=== PATIENT | female | born 1995 | race Two or more races ===

== ENCOUNTER 2023-04-26 12:31 | Outpatient (REF) | payer MEDICAID, SELFPAY ==
--- NOTE | ~2023-04-26 | US_ITS ---
EXAMINATION: US DIAGNOSTIC ULTRASOUND BREAST, LEFT CLINICAL INFORMATION: 27-year-old female complaining of palpable abnormality at the 3:00 axis x2 weeks.. COMPARISON: None available. TECHNIQUE: Ultrasound of the breast is performed with real-time bolanos scale imaging and color Doppler. Specific attention was given to the focus of palpable abnormality as detailed by the patient. FINDINGS: In the left breast at the 2:00 axis, 4 cm from the nipple, there is a simple anechoic cyst measuring 1.4 x 1.0 x 1.4 cm. This correlates well with the focus of palpable concern. There is no solid mass, architectural abnormality, duct ectasia, or edema in the soft tissue planes. Results were provided to the patient at time of visit by the technologist. US/US breast LT limited mamm only IMPRESSION: Benign cyst left breast 2:00 axis, 4 cm from the nipple, measuring 1.4 cm. This correlates well with the focus of palpable concern and is benign. Recommend clinical management. Aspiration could be performed for symptomatic relief if felt clinically necessary. ASSESSMENT: BI-RADS 2: Benign RECOMMENDATION: 1. Patient should be managed based on the clinical impression. Aspiration offered as detailed above, for symptomatic relief. 2. Otherwise, routine annual screening mammography to begin at age 40.. This patient's information was entered into a reminder system with a target due date for their next mammogram.
== END 2023-04-26 12:32 | disposition home or self-care (01) ==
LOC: HO.MAMMO 12:31
PROVIDERS: PCP Registered Nurse; Visit Provider Internal Medicine
DX: N63.25 Unspecified lump in the left breast, overlapping quadrants (principal)
CPT/HCPCS: 76642

== ENCOUNTER → 2023-04-26 13:00 | Outpatient (BNV) | payer MEDICAID, SELFPAY | PROVIDERS: PCP Registered Nurse; Visit Provider Radiology Diagnostic Radiology | DX: N63.20 Unspecified lump in the left breast, unspecified quadrant (principal) | CPT/HCPCS: 76642 ==

== ENCOUNTER 2025-06-19 15:03 | Outpatient (REF) | payer MEDICAID, SELFPAY ==
--- OUTSIDE RECORDS SUMMARY | 2025-06-19 14:15 | XMS_ITS | Encounter Summary ---
Author Organization [employer] Address [address] [place] [address] [address] [place] [address] Care Team Providers Care Mini Bar Attendant Name Role Phone [facility] Primary Care Provider [phone] Reason for Visit * Reason Comments Annual Exam Encounter Details Date Type Department Care Team ([facility] st Contact Info) Description 06/19/2025 2:15 PM EST Office Visit [facility] [address] [place] [address] [facility] [address] [place] [address] Bruising (Primary Dx); Healthcare maintenance; Seafood allergy Social History Tobacco Use Types Packs/Day Years Used Date Smoking Tobacco: Never Passive Smoke Exposure: Never Smokeless Tobacco: Never Tobacco Cessation:Counseling Given: Not Answered Alcohol Use Standard Drinks/Week Comments Not Currently 0 (1 standard drink = 0.6 oz pur e alcohol) Depression Answer Date Recorded Patient Health Questionnaire-9 Score 0 06/19/2025 Patient Health Questionnaire-9 Score 0 06/19/2025 Last PHQ-9: Questionnaire Data Not on file 1 08/19/2024 Housing Stability Answer Date Recorded What is your housing situation today? I have reinaldo chen 12/19/[address] you li ve. Do you have problems with any of the following? None of the above 12/19/2023 Food Insecurity Answer Date Recorded Within the past 12 months, y ou worried that your food would run out before you got money to buy more: Never True 12/19/2023 Within the past 12 months,th e food you bought just didn't last and you didn't have enough money to get more: Never True Transportation Answer Date Recorded In the past 12 months, has l ack of transportation kept you from medical appts, meetings, work or from getting things needed for daily living? No 05/29/2023 Utilities Answer Date Recorded In the past 12 months, has t he electric, gas, oil or water company threatened to shut off services in your home? No 05/29/2023 Depression Answer Date Recorded Patient Health Questionnaire-2 Score 0 06/19/2025 Comments No Sex and Gender Information Value Date Recorded Sex Assigned at Female 06/07/2022 10:40 AM EDT Legal Sex Female 10:40 AM EDT Gender Identity Female 06/07/2022 10:40 AM EDT Sexual Orientation Straight 06/07/2022 10 :40 AM EDT documented as of this encounter Last Filed Vital Signs Vital Sign Reading Time Taken Comments Blood Pressure 100/68 06/19/2025 2:06 PM EST Pulse 60 06/19/2025 2:06 PM EST Temperature 36.7 C (98 F) 06/19/2025 2:06 PM EST Respiratory Rate 16 06/19/2025 2:06 PM EST Oxygen Saturation - - Inhaled Oxygen Concentration - - Weight 52.5 kg (115 lb 12.8 oz) 06/19/2025 2:06 PM EST Height 149.9 cm (4' 11 ) 06/19/2025 2:06 PM EST Body Mass Index 23.39 06/19/2025 2:06 PM EST documented in this encounter Functional Status * Over the past 2 weeks, how often have you been bothered by any of the following problems? Question Answer Date of Assessment Author Patient Health Questionnaire-2 Score 0 06/19/2025 2:16 PM EST Sabi Meyers MA * Little interest or pleasure in doing things Answer Date of Assessment Author Not at all 06/19/2025 2:16 PM EST Sabi Marion MA * Feeling down, depressed, or hopeless Answer Date of Assessment Author Not at all 06/19/2025 2:16 PM EST Sabi Marion MA * Trouble falling or staying asleep, or sleeping too much Answer Date of Assessment Author Not at all 06/19/2025 2:16 PM Sabi Amos MA * Feeling tired or having little energy Answer Date of Assessment Author Not at all 06/19/2025 2:16 PM Sabi Amos MA * Poor appetite or overeating Answer Date of Assessment Author Not at all 06/19/2025 2:16 PM Sabi Amos MA * Feeling bad about yourself - or that you are a failure or have let yourself or your family down Answer Date of Assessment Author Not at all 06/19/2025 2:16 PM Sabi Amos MA * Trouble concentrating on things, such as reading the newspaper or watching television Answer Date of Assessment Author Not at all 06/19/2025 2:16 PM Sabi Amos MA * Moving or speaking so slowly that other people could have noticed? Or the opposite - being so fidgety or restless that you have been moving around a lot more than usual. Answer Date of Assessment Author Not at all 06/19/2025 2:16 PM Sabi Amos MA * Thoughts that you would be better off or hurting yourself in some way Answer Date of Assessment Author Not at all 06/19/2025 2:16 PM Sabi Amos MA * Patient Health Questionnaire-9 Score Answer Date of Assessment Author 0 06/19/2025 2:16 PM Sabi Amos MA * Over the last 2 weeks, how often have you been bothered by any of the following problems? Question Answer Date of Assessment Author Feeling nervous, anxious, or on edge 0 06/19/2025 2:16 PM Sabi Singleton MA Not being able to stop or control worrying 0 06/19/2025 2:16 PM Sabi Singleton MA Worrying too much about different things 0 06/19/2025 2:16 PM Sabi Singleton MA Trouble relaxing 0 06/19/2025 2:16 PM EST Sabi Neff MA Being so restless that it is hard to sit still 0 06/19/2025 2:16 PM EST Sabi Meyers MA Becoming easily annoyed or irritable 0 06/19/2025 2:16 PM EST Sabi Meyers MA Feeling afraid as if something awful might happen 0 06/19/2025 2:16 PM EST Sabi Whalen MA ROSALIND-7 Total Score 0 06/19/2025 2:16 PM EST Sabi Meyers MA documented as of this encounter Plan of Treatment Scheduled Orders Name Type Priority Associated Diagnoses Orde r Schedule TSH W/Reflex to FT4 Lab Routine Bruising Expected: 06/19/2025 (Approximate), Expires: 06/19/2026 documented as of this encounter Procedures Procedure Name Priority Date/Time Associated Diagnosis Comments CBC WITH AUTO DIFFERENTIAL Routine 06/19/2025 3:17 PM EST Bruising documented in this encounter Results * CBC auto differential (06/19/2025 3:17 PM EST) White Blood Count 8.7 4.8 - 10.8 X10*3/uL [facility] Red Blood Count 4.59 4.20 - 5.50 X10*6/uL [facility] Hemoglobin 12.7 12.0 - 16.0 g/dl [facility] Hematocrit 38.8 37.0 - 47.0 % [facility] Mean Corpuscular Volume 84.5 80.0 - 98.0 fL [facility] Mean Corpuscular Hemoglobin 27.7 27.0 - 33.0 pg [facility] Mean Corpuscular HGB Conc 32.7 31.0 - 35.0 g/dl [facility] Red Cell Distribution Width 12.3 11.0 - 16.0 % [facility] Platelet Count 250 160 - 400 X10*3/uL [facility] Mean Platelet Volume 10.8 9.4 - 12.3 fL [facility] Neutrophils Percent Auto 52.8 45 - 73 % [facility] Imm Gran Pct Auto 0.2 0.0 - 0.4 % [facility] Lymphocytes Percent Auto 38.3 20 - 40 % [facility] Monocytes Percent Auto 5.6 2 - 11 % [facility] Eosinophils Percent Auto 2.5 0 - 4 % [facility] Basophils Percent Auto 0.6 0 - 2 % [facility] NRBC Pct Auto 0.0 0.0 - 0.2 /100WBC [facility] Neutrophils Absolute Auto 4.6 2.0 - 8.3 x10*3/uL [facility] Imm Gran Abs Auto 0.02 0.00 - 0.03 X10*3/uL [facility] Lymphocytes Absolute Auto 3.3 1.2 - 4.9 X10*3/uL [facility] Monocytes Absolute Auto 0.5 0.1 - 1.2 X10*3/uL [facility] Eosinophils Absolute Auto 0.2 0.0 - 0.4 X10*3/uL [facility] Basophils Absolute Auto 0.1 0.0 - 0.2 X10*3/uL [facility] NRBC Abs Auto 0.000 0.0 - 0.012 X10*3/uL [facility] Blood Venous blood specimen / Unknown 06/19/2025 3:17 PM EST 06/19/2025 3:59 PM EST [facility] LAB BLOOD ORDERABLES Final Re sult [facility] [address] [place] [address] [phone] documented in this encounter Visit Diagnoses Diagnosis Bruising- Primary Contusion of unspecified site Healthcare maintenance Seafood allergy Allergy to seafood documented in this encounter Additional Health Concerns Assessment Noted Time PHQ-9 Depression Total Score: 0 06/19/20 25 2:16 PM EST documented as of this encounter Care Teams Mini Bar Attendant Relationship Specialty Start Date End Date [facility] [address] [place] [id number] PCP - General Family Medicine 04/06/22 documented as of this encounter
[2025-06-19 16:07] LABS: MANUAL DIFF FLAG NO
[2025-06-19 16:17] LABS: Hematocrit 38.8 % (37.0-47.0); Hemoglobin 12.7 g/dl (12.0-16.0); Imm Gran Abs Auto 0.02 X10*3/uL (0.00-0.03); Imm Gran Pct Auto 0.2 % (0.0-0.4); Lymphocytes Absolute Auto 3.3 X10*3/uL (1.2-4.9); Mean Corpuscular HGB Conc 32.7 g/dl (31.0-35.0); Mean Corpuscular Hemoglobin 27.7 pg (27.0-33.0); Mean Corpuscular Volume 84.5 fL (80.0-98.0); NRBC Abs Auto 0.000 X10*3/uL (0.0-0.012); NRBC Pct Auto 0.0 /100WBC (0.0-0.2); Platelet Count 250 X10*3/uL (160-400); Red Blood Count 4.59 X10*6/uL (4.20-5.50); White Blood Count 8.7 X10*3/uL (4.8-10.8)
--- OUTSIDE RECORDS SUMMARY | 2025-06-19 18:23 | XMS_ITS | Clinical Summary ---
Author Organization [facility] Address [address] [place] [address] Phone Care Team Providers Care Repair Weaver Name Role Phone Unavailable Primary Care Provider Unavailabl e Allergies Active Allergy Reactions Criticality Noted Date Comments Caffeine Rash Low 02/20/2024 Roselle Extract Itching 02/20/2024 Roselle Syrup Rash 02/20/2024 Fructose Rash Low 02/20/2024 Other 01/23/2024 Caffeine corn Syrup Fructose sucrose Other Reaction(s): Rash/Dermatitis Shellfish Containing Products Swelling 01/23/2024 Seafood Sucrose Rash Low 02/20/2024 Medications etonogestrel-elut ing contraceptive device (Nexplanon) 68 mg implant subdermal implant Inject 68 mg into the skin Once. 4 Active hydrocortisone (ANUSOL-HC) 2.5 % rectal cream Apply 1 Applicator topically 2 times daily. 4 Active vit no.124/iron/folic ( VITAMIN ORAL) Vit-Fe Fumarate-FA ( Vitamin) 27-0.8 MG Tab Take 1 Tablet by mouth daily. 4 Active Active Problems Problem Noted Date Diagnosed Date Elevated glucose tolerance test 01/05/2024 Overview (07/04/2024): 1 hr was 140 3 hr one abnormal value Size of fetus inconsistent with dates in second trimester 01/05/2024 Overview (07/04/2024): Fundal height is 24cm at 26w5d, growth u/s ordered survey on 01/20/24- WNL Surgical History Surgery Date Site/Laterality Comments OTHER SURGICAL HISTORY PROCEDURE: DENIES PREVIOUS SURGERY Medical History Medical History Date Comments Patient denies medical problems DX:Patient denies medical problems Left breast lump DX:Left breast lump; COMMENT: mammo/sono were negative Family History Medical History Relation Name Comments No Known Problems Father COPD Maternal Grandfather Diabetes Maternal Grandmother No Known Problems Mother Alcohol abuse Paternal Grandfather No Known Problems Paternal Grandmother Relation Name Status Comments Brother Alive Father Alive Maternal Grandfather Maternal Grandmother Alive Mother Alive Paternal Grandfather Paternal Grandmother Sister 1 Alive Sister 2 Alive Social History Tobacco Use Types Packs/Day Years Used Date Smoking Tobacco: Never Smokeless Tobacco: Never Alcohol Use Standard Drinks/Week Comments Never 0 (1 standard drink = 0.6 oz pur e alcohol) Comments No Sex and Gender Information Value Date Recorded Sex Assigned at Not on file Legal Sex Female 11:07 AM EDT Gender Identity Not on file Sexual Orientation Not on file Obstetrics History * This document contains information received from the source organization and may not represent a complete record from that organization. Para Term AB IAB SAB Ectopic Multiple Livin g Live Births 3 1 1 1 1 Date Outcome GA Total Labor Labor/2nd/3rd Weight Sex Type Anes PTL Belén A1 A5 Name Clin 02/24 23 04/27 23 02/19 Term 38w 1d F Vag-S pont Epidura l Livin g Kayla Feinla nd Complications:None Last Filed Vital Signs Vital Sign Reading Time Taken Comments Blood Pressure 105/64 09/03/2024 3:02 PM EST Pulse 61 09/03/2024 3:02 PM EST Temperature - - Respiratory Rate - - Oxygen Saturation - - Inhaled Oxygen Concentration - - Weight 53.5 kg (118 lb) 09/03/2024 3:02 PM EST Height 149.9 cm (4' 11 ) 09/03/2024 3:02 PM EST Body Mass Index 23.83 09/03/2024 3:02 PM EST Plan of Treatment Health Maintenance Due Date Last Done Comments Hepatitis B Vaccines (2 of 3 - 19+ 3-dose series) 12/09/2017 11/11/2017 Social Influencers of Health Screening 03/02/2024 Depression Screening 08/08/2024 COVID-19 Vaccine (1 - 2024-2 6 season) 2025 Influenza Vaccine (#1) 2025 Cervical Cancer Screening: P ap Smear 11/22/2025 11/22/2022, 11/22/2022, 01/25/2018 Cholesterol Screening (Lipid Panel) 12/17/2027 12/16/2022, 01/25/2018 DTaP,Tdap,and Td Vaccines (3 - Td or Tdap) 12/04/2033 12/05/2023, 12/16/2022 RSV Immunization Adult Patients (1 - 1-dose 75+ series) 10/28/2071 HPV Vaccines Completed 01/24/2017, 08/05/2016, 06/03/2016 Hepatitis A Vaccines Aged Out 11/11/2017 No long er eligible based on patient's age to complete this topic MMR Vaccines Aged Out 11/11/2017 No longer eligi ble based on patient's age to complete this topic Varicella Vaccines Aged Out 11/11/2017 No longer eligible based on patient's age to complete this topic HIV Screening Completed 12/16/2022 Hepatitis C Screening Completed 12/16/2022 HIB Vaccines Aged Out No longer eligi ble based on patient's age to complete this topic IPV Vaccines Aged Out No longer eligi ble based on patient's age to complete this topic Meningococcal ACWY Vaccine Aged Out N o longer eligible based on patient's age to complete this topic Meningococcal B Vaccine Aged Out No l onger eligible based on patient's age to complete this topic Pneumococcal Vaccine: Pediatrics (0 to 5 Years) and At-Risk Patients (6 to 49 Years) Aged Out No longer eligible b ased on patient's age to complete this topic RSV Immunization Patients Under 20 months Aged Out No longer eligible b ased on patient's age to complete this topic Procedures Procedure Name Priority Date/Time Associated Diagnosis Comments PAP SMEAR Routine 11/22/2022 from Last 3 Months or Most Recently Relevant to Health Maintenance Results * Pap Smear (11/22/2022) Pap smear no interpretation , abstracted Historical Provider MD HEALTH MAINTENANCE Final Result from Last 3 Months or Most Recently Relevant to Health Maintenance Insurance MEDICAID - [place]
--- OUTSIDE RECORDS SUMMARY | 2025-06-19 18:23 | XMS_ITS | Encounter Summary ---
Author Organization [employer] Address [address] [facility] 7 [place] [address] Care Team Providers Care Database Marketing Analyst Name Role Phone Mario [facility] Primary Care Provider [phone] Encounter Details Date Type Department Care Team ([facility] Contact Info) Description 05/16/2024 Orders Only [facility] [address] [place] [address] Carmelita Macario RN [address] [place] [address] Social History Tobacco Use Types Packs/Day Years Used Date Smoking Tobacco: Never Passive Smoke Exposure: Never Smokeless Tobacco: Never Alcohol Use Standard Drinks/Week Comments Not Currently 0 (1 standard drink = 0.6 oz pur e alcohol) Depression Answer Date Recorded Patient Health Questionnaire-9 Score 0 05/07/2024 Patient Health Questionnaire-9 Score 0 05/07/2024 Last PHQ-9: Questionnaire Data Not on file 0 05/07/2024 Housing Stability Answer Date Recorded What is [...] Date Recorded Patient Health Questionnaire-2 Score 0 05/07/2024 Comments Yes Sex and Gender Information Value Date Recorded Sex Assigned at Female 06/07/2022 10:40 AM EDT Legal Sex Female 10:40 AM EDT Gender Identity Female 06/07/2022 10:40 AM EDT Sexual Orientation Straight 06/07/2022 10 :40 AM EDT documented as of this encounter Plan of Treatment Not on file documented as of this encounter Procedures Procedure Name Priority Date/Time Associated Diagnosis Comments PAP SMEAR Routine 11/22/2022 12:00 AM EDT documented in this encounter Results * Pap Smear (11/22/2022 12:00 AM EDT) Swab us Historical Provider MD LAB CYTOLOGY ORDERABLES F inal Result [facility] [address] [place] [address] documented in this encounter Visit Diagnoses Not on filedocumented in this encounter Additional Health Concerns Assessment Noted Time PHQ-9 Depression Total Score: 0 05/07/20 24 10:21 AM EDT documented as of this encounter Care Teams Database Marketing Analyst Relationship Specialty Start Date End Date Henna Martin FNP [address] [place] [id number] PCP - General Family Medicine 04/06/22 documented as of this encounter
--- OUTSIDE RECORDS SUMMARY | 2025-06-19 18:23 | XMS_ITS | Encounter Summary ---
Author Organization [employer] Address [address] [place] [address] 7 [place] [address] Care Team Providers Care Manager Beverage Name Role Phone [facility] Primary Care Provider [phone] Reason for Visit * Reason Onset Date Comments chart prep 06/18/2025 Encounter Details Date Type Department Care Team ([facility] st Contact Info) Description 06/18/2025 Telephone [facility] [address] [place] [address] [facility] [address] [place] [address] chart prep Social History Tobacco Use Types Packs/Day Years [...] Patient Health Questionnaire-2 Score 0 06/19/2025 Comments Unknown Sex and Gender Information Value Date Recorded Sex Assigned at Female 06/07/2022 10:40 AM EDT Legal Sex Female 10:40 AM EDT Gender Identity Female 06/07/2022 10:40 AM EDT Sexual Orientation Straight 06/07/2022 10 :40 AM EDT documented as of this encounter Miscellaneous Notes * Telephone Encounter - Sabi Meyers MA - 06/18/2025 2:27 PM EST Chart Prep Labs: not applicable Images: not applicable Referrals: complete Vaccines due: Covid, Flu, and Hep B Screenings: not applicable Overdue care gaps: SDOH, PHQ-9, ROSALIND-7, and Disability screen documented in this encounter Plan of Treatment Not on file documented as of this encounter Visit Diagnoses Not on filedocumented in this encounter Additional Health Concerns Assessment Noted Time PHQ-9 Depression Total Score: 0 05/07/20 24 10:21 AM EDT documented as of this encounter Care Teams Manager Beverage Relationship Specialty Start Date End Date Henna Martin FNP [address] [place] [id number] PCP - General Family Medicine 04/06/22 documented as of this encounter
--- OUTSIDE RECORDS SUMMARY | 2025-06-19 18:23 | XMS_ITS | Clinical Summary ---
Author Organization [facility] Address [address] [place] [address] 7 [place] [address] Care Team Providers Care Data Management Name Role Phone Henna Martin [facility] Primary Care Provider [phone] Allergies Active Allergy Reactions Criticality Noted Date Comments Shellfish Allergy 12/16/2022 Shellfish Protein-Containing Drug Products Angioedema 11/20/2021 Other Reaction(s): Hives, Trouble Breathing Medications * This document contains information received from the source organization and may not represent a complete record from that organization. multivitamin () 27-0.8 MG tabletIndicatio ns:Healthcare maintenance Take 1 tablet by mouth Once per day. 90 tablet 3 06/19/20 25 Active EPINEPHrine (EpiPen 2-Troy) 0.3 MG/0.3ML injection syringeIndicati ons:Seafood allergy Inject 0.3 mL (0.3 mg) as directed 1 (one) time. 1 each 3 06/19/20 25 Active EPINEPHrine (EpiPen 2-Troy) 0.3 MG/0.3ML injection syringeIndicati ons:Seafood allergy Inject 0.3 mL (0.3 mg) as directed 1 (one) time for 1 dose. 1 each 3 12/17/19 23 025 Discontinued(Re order (will not trigger notification to Pharmacy)) Active Problems Problem Noted Date Diagnosed Date Major depressive disorder, s starr episode, mild with peripartum onset 03/27/2024 Healthcare maintenance 12/19/2023 Overview (12/19/2023): Pap negative 12/[address] [facility] Vitamin D deficiency 03/02/2023 Resolved Problems Problem Noted Date Diagnosed Date Resolved Date depression 03/27/[address] 03/02/2023 Encounters Date Type Department Care Team Description 06/19/2025 2:15 PM EST Office Visit [facility] [address] [place] [address] Henna Martin FNP Bruising (Primary Dx); Healthcare maintenance; Seafood allergy 06/19/2025 Travel 06/18/2025 Telephone [facility] [address] [place] [address] Henna Martin FNP chart prep 06/12/2025 Patient Outreach [facility] [address] [place] [address] Henna Martin FNP Pre-visit Planning (LVM) 04/09/2025 Telephone [facility] [address] [place] [address] Henna Martin FNP oct recall 03/29/2025 1:00 PM EDT Office Visit [facility] OPTOMETRY [address] [place] [address] Tarka, Reina, OD Normal eye exam (Primary Dx); Regular astigmatism, right eye 03/29/2025 Travel from Last 3 Months Immunizations Immunization Administration Dates Next Due HPV 9-Valent 01/24/2017,08/05/2016,06/03/2016 Hep A, Adult 11/11/2017 Hep B, adult 11/11/2017 MMR 11/11/2017 Tdap 12/05/2023,12/16/2022 Varicella 11/11/2017 Social History Tobacco Use Types Packs/Day Years [...] Orientation Straight 06/07/2022 10 :40 AM EDT Last Filed Vital Signs Vital Sign Reading Time Taken Comments Blood Pressure 100/68 06/19/2025 2:06 PM EST Pulse 60 06/19/2025 2:06 PM EST Temperature 36.7 C (98 F) 06/19/2025 2:06 PM EST Respiratory Rate 16 06/19/2025 2:06 PM EST Oxygen Saturation 99% 05/07/2024 10: 20 AM EDT Inhaled Oxygen Concentration - - Weight 52.5 kg (115 lb 12.8 oz) 06/19/2025 2:06 PM EST Height 149.9 cm (4' 11 ) 06/19/2025 2:06 PM EST Body Mass Index 23.39 06/19/2025 2:06 PM EST Plan of Treatment Health Maintenance Due Date Last Done Comments Alcohol/Substance Use Screening 2008 Family Planning (PISQ) 10/28/2011 Hepatitis B Vaccines (2 of 3 - 19+ 3-dose series) 12/09/2017 11/11/2017 SDOH Screening 12/18/2024 12/19/2023 COVID-19 Vaccine (1 - 2024-2 6 season) 2025 Influenza Vaccine (#1) 2025 Pap Smear 11/22/2025 11/22/2022 Depression Screening 06/19/2026 06/19/2025, 06/19/2025 Disability Screening 06/19/2026 06/19/2025 Tobacco Screening 06/19/2026 06/19/2025 DTaP/Tdap/Td Vaccines (3 - T d or Tdap) 12/04/2033 12/05/2023, 12/16/2022 Zoster Vaccines (1 of 2) 2046 RSV Patients and Patients Aged 60 years or older (1 - 1-dose 75+ series) 10/28/2071 HPV Vaccines Completed 01/24/2017, 08/05/2016, 06/03/2016 Hepatitis A Vaccines Aged Out 11/11/2017 No long er eligible based on patient's age to complete this topic HIV Screening Completed 12/16/2022, 11/20/2021 Hepatitis C Screening Completed 12/16/2022 , 11/20/2021 HIB Vaccines Aged Out No longer eligi ble based on patient's age to complete this topic IPV Vaccines Aged Out No longer eligi ble based on patient's age to complete this topic Meningococcal B Vaccine Aged Out No l onger eligible based on patient's age to complete this topic Meningococcal Vaccine Aged Out No danilo grazyna eligible based on patient's age to complete this topic Pneumococcal Vaccine: Pediatrics (0 to 5 Years) and At-Risk Patients (6 to 49) Years Aged Out No longer eligible b ased on patient's age to complete this topic RSV under 20 months Aged Out No longe r eligible based on patient's age to complete this topic Rotavirus Vaccines Aged Out No longer eligible based on patient's age to complete this topic Procedures Procedure Name Priority Date/Time Associated Diagnosis Comments CBC WITH AUTO DIFFERENTIAL Routine 06/19/2025 3:17 PM EST Bruising AMB REFERRAL TO ALLERGY Routine 05/01/2025 Seasonal allergies HEPATITIS C AB W/REFL TO HCV RNA, QN, PCR Routine 12/16/2022 1:29 PM EDT Healthcare maintenance HIV 1/2 ANTIGEN/ANTIBODY, FOURTH GENERATION W/RFL Routine 12/16/2022 1:29 PM EDT Healthcare maintenance PAP SMEAR Routine 11/22/2022 12:00 AM EDT from Last 3 Months or Most Recently Relevant to Health Maintenance Results * CBC auto differential (06/19/2025 3:17 PM EST) White Blood Count 8.7 4.8 - 10.8 X10*3/uL [facility] Red Blood Count 4.59 4.20 - 5.50 X10*6/uL [facility] Hemoglobin 12.7 12.0 - 16.0 g/dl [facility] Hematocrit 38.8 37.0 - 47.0 % [facility] Mean Corpuscular Volume 84.5 80.0 - 98.0 fL [facility] Mean Corpuscular Hemoglobin 27.7 27.0 - 33.0 pg [facility] Mean Corpuscular HGB Conc 32.7 31.0 - 35.0 g/dl [facility] Red Cell Distribution Width 12.3 11.0 - 16.0 % [facility] Platelet Count 250 160 - 400 X10*3/uL [facility] Mean Platelet Volume 10.8 9.4 - 12.3 fL [facility] Neutrophils Percent Auto 52.8 45 - 73 % [facility] Imm Gran Pct Auto 0.2 0.0 - 0.4 % [facility] Lymphocytes Percent Auto 38.3 20 - 40 % [facility] Monocytes Percent Auto 5.6 2 - 11 % [facility] Eosinophils Percent Auto 2.5 0 - 4 % [facility] Basophils Percent Auto 0.6 0 - 2 % [facility] NRBC Pct Auto 0.0 0.0 - 0.2 /100WBC [facility] Neutrophils Absolute Auto 4.6 2.0 - 8.3 x10*3/uL [facility] Imm Gran Abs Auto 0.02 0.00 - 0.03 X10*3/uL [facility] Lymphocytes Absolute Auto 3.3 1.2 - 4.9 X10*3/uL [facility] Monocytes Absolute Auto 0.5 0.1 - 1.2 X10*3/uL [facility] Eosinophils Absolute Auto 0.2 0.0 - 0.4 X10*3/uL [facility] Basophils Absolute Auto 0.1 0.0 - 0.2 X10*3/uL [facility] NRBC Abs Auto 0.000 0.0 - 0.012 X10*3/uL [facility] Blood Venous blood specimen / Unknown 06/19/2025 3:17 PM EST 06/19/2025 3:59 PM EST [facility] LAB BLOOD ORDERABLES Final Re sult [facility] [address] [place] [phone] [phone] * Referral to Allergy (05/01/2025) [facility] OUTPATIENT REFERRAL ORDERABLE S Final Result * Hepatitis C Antibody with Reflex to HCV, RNA, Quantitative, Real-Time PCR (12/16/2022 1:29 PM EDT) Hepatitis C Antibody NON-REACT PRIETO NON-REACT PRIETO [facility] [place] [facility] Index 0.22 <1.00 [facility] [place] [facility] Comment: HCV antibody was non-reactive. There is no laboratory evidence of HCV infection. In most cases, no further action is required. However, if recent HCV exposure is suspected, a test for HCV RNA (test code 97771) is suggested. For additional information please refer to http://education.DigiMeld.FarmersWeb/faq/FMA92z1 (This link is being provided for informational/ educational purposes only.) Blood Venous blood specimen / Unknown 12/16/2022 1:29 PM EDT 12/16/2022 1:30 PM EDT Narrative [facility] - 12/20/2022 1:29 PM EDT FASTING:NO FASTING: NO [facility] LAB BLOOD ORDERABLES Final Re sult DENNYS Bach [address], [place] [address] [facility] [place] [facility] [address] [place] [address] * HIV-1/2 Antigen and Antibodies, Fourth Generation, with Reflexes (12/16/2022 1:29 PM EDT) HIV Antigen/Antibody, 4th Generation NON-REAC TIVE NON-REAC TIVE [facility] [place] [facility] Comment: HIV-1 antigen and HIV-1/HIV-2 antibodies were not detected. There is no laboratory evidence of HIV infection. PLEASE NOTE: This information has been disclosed to you from records whose confidentiality may be protected by state law. If your state requires such protection, then the state law prohibits you from making any further disclosure of the information without the specific written consent of the person to whom it pertains, or as otherwise permitted by law. A general authorization for the release of medical or other information is NOT sufficient for this purpose. For additional information please refer to http://education.DigiMeld.FarmersWeb/faq/DJR993 (This link is being provided for informational/ educational purposes only.) The performance of this assay has not been clinically validated in patients less than 2 years old. Blood Venous blood specimen / Unknown 12/16/2022 1:29 PM EDT 12/16/2022 1:30 PM EDT Narrative [facility] - 12/20/2022 1:29 PM EDT FASTING:NO FASTING: NO [facility] LAB BLOOD ORDERABLES Final Re sult DENNYS Bach [address], [place] [address] [facility] [place] [facility] [address] [place] [address] * Pap Smear (11/22/2022 12:00 AM EDT) Swab [facility] Provider LAB CYTOLOGY ORDERABLES F inal Result [facility] [address] [place] [address] from Last 3 Months or Most Recently Relevant to Health Maintenance Insurance [facility] C3 Care Teams Data Management Relationship Specialty Start Date End Date Henna Martin FNP [address] [place] [id number] PCP - General Family Medicine 04/06/22
--- OUTSIDE RECORDS SUMMARY | 2025-06-19 18:23 | XMS_ITS | Encounter Summary ---
Author Organization [facility] Address [address] [place] [address] Care Team Providers Care Geospatial Information Technologist Name Role Phone Henna Martin [facility] Primary Care Provider Reason for Visit * Reason Onset Date Comments Med Refill 03/14/2023 Encounter Details Date Type Department Care Team (Late st Contact Info) Description 03/14/2023 Refill [facility] [address] [place] [address] Henna Martin [facility] [address] [place] [address] Patient desires Social History Tobacco Use Types Packs/Day Years Used Date Smoking Tobacco: Never Passive Smoke Exposure: Never Smokeless Tobacco: Never Alcohol Use Standard Drinks/Week Comments Not Currently 0 (1 standard drink = 0.6 oz pur e alcohol) Comments Unknown Sex and Gender Information Value Date Recorded Sex Assigned at Female 06/07/2022 10:40 AM EDT Legal Sex Female 10:40 AM EDT Gender Identity Female 06/07/2022 10:40 AM EDT Sexual Orientation Straight 06/07/2022 10 :40 AM EDT documented as of this encounter Plan of Treatment Not on file documented as of this encounter Visit Diagnoses Diagnosis Patient desires documented in this encounter Additional Health Concerns Assessment Noted Time PHQ-9 Depression Total Score: 0 12/17/19 23 1:01 PM EDT documented as of this encounter Care Teams Geospatial Information Technologist Relationship Specialty Start Date End Date Henna Martin FNP [address] [place] [address] PCP - General Family Medicine 04/06/22 documented as of this encounter
--- OUTSIDE RECORDS SUMMARY | 2025-06-19 18:23 | XMS_ITS | Clinical Summary ---
Author Organization [facility] Address [address] [place] [id number] Phone Care Team Providers Care Manager Sap Name Role Phone Nigel Joseph MD Primary Ca re Provider Allergies No known active allergies Medications lidocaine (LIDODERM) 5 % Place 1 patch onto the skin daily. Remove & Discard patch within 12 hours or as directed by 30 patch 08/09/2018 Active Active Problems No known active problems Social History Tobacco Use Types Packs/Day Years Used Date Smoking Tobacco: Never Education Answer Date Recorded Are you interested in more education? Not on petra e 12/03/2022 Are you concerned about learning? Not on file 12/03/2022 No 12/03/2022 No 12/03/2022 Digital Access Answer Date Recorded No 01/03/2023 No 01/03/2023 No 01/03/2023 Reliable internet access at home? Not on file 01/03/2023 Device with a working camera? Not on file Comments No Sex and Gender Information Value Date Recorded Sex Assigned at Female 08/12/2021 9:14 AM EST Legal Sex Female 8:27 PM EDT Gender Identity Female 08/12/2021 9:14 AM EST Sexual Orientation Choose not to disclose 2021 9:14 AM EST Last Filed Vital Signs Vital Sign Reading Time Taken Comments Blood Pressure 114/74 08/09/2018 1:44 PM EST Pulse 64 08/09/2018 1:44 PM EST Temperature 36.6 C (97.9 F) 08/09/2018 12:40 PM EST Respiratory Rate 16 08/09/2018 1:44 PM EST Oxygen Saturation 98% 08/09/2018 1:44 PM EST Inhaled Oxygen Concentration - - Weight 59 kg (130 lb) 08/09/2018 12:40 PM EST Height 142.2 cm (4' 8 ) 08/09/2018 12:40 PM EST Body Mass Index 29.15 08/09/2018 12:40 PM EST Plan of Treatment Health Maintenance Due Date Last Done Comments Adult Td,Tdap Booster 1996 DEPRESSION SCREENING 2008 HEPATITIS C SCREENING 2014 HIV ONE-TIME SCREENING (18-6 5 YEARS) 2014 PAP SMEAR 2017 SMOKING STATUS SCREENING (On ce After 26 Yrs) 2022 INFLUENZA VACCINE (#1) 2025 COVID-19 VACCINE (2024-2 6 season) 2025 HEPATITIS A VACCINES Aged Out No long er eligible based on patient's age to complete this topic HIB VACCINES Aged Out No longer eligi ble based on patient's age to complete this topic IPV VACCINES Aged Out No longer eligi ble based on patient's age to complete this topic MENINGOCOCCAL VACCINES (ACWY) Aged Out No longer eligible based on patient's age to complete this topic MENINGOCOCCAL VACCINES (B) Aged Out N o longer eligible based on patient's age to complete this topic PNEUMOCOCCAL VACCINES (0-49 years) Aged Out No longer eligible based on patient's age to complete this topic Medical Devices Not on file Insurance [facility] NON NSPG PCP [employer]L [employer] [facility]FORM[facility] WELLSENSE NON NSPG PCP SILVER CLARITY CONNECTORCARE [place] NON NSPG PCP SILVER CLARITY CONNECTORCARE WELL[employer] NON NSPG PCP SILVER CLARITY CONNECTORCARE [employer] NON NSPG PCP SILVER CLARITY CONNECTORCARE [employer] NON NSPG PCP SILVER CLARITY CONNECTORCARE WELLSENSE NON NSPG PCP SILVER CLARITY CONNECTORCARE [place] NON NSPG PCP SILVER CLARITY CONNECTORCARE WELLSENSE NON NSPG PCP SILVER CLARITY CONNECTORCARE [employer] NON NSPG PCP SILVER CLARITY CONNECTORCARE Care Teams Manager Sap Relationship Specialty Start Date End Date Nigel Joseph MD [address] [place] [address] [email or web address] PCP - General 08/12/21 Additional Source Comments The information contained in this document represents components of the legal health record. It is not the complete legal health record.[facility]
--- OUTSIDE RECORDS SUMMARY | 2025-06-19 18:23 | XMS_ITS | Encounter Summary ---
Author Organization [facility] [employer] Address [address] [place] [address] Care Team Providers Care Bucket Operator Name Role Phone Mario [facility] Primary Care Provider [phone] Reason for Visit * Reason Onset Date Comments Med Refill 03/01/2023 Encounter Details Date Type Department Care Team (Late st Contact Info) Description 03/01/2023 Refill [facility] [address] [place] [address] [facility] [address] [place] [address] Patient desires Social History Tobacco Use Types [...] documented as of this encounter Care Teams Bucket Operator Relationship Specialty Start Date End Date Henna Martin [facility] [address] [place] [address] PCP - General Family Medicine 04/06/22 documented as of this encounter
--- OUTSIDE RECORDS SUMMARY | 2025-06-19 18:23 | XMS_ITS | Encounter Summary ---
Author Organization [employer] Address [address] [facility] [address] [place] [address] Care Team Providers Care Pig Sticker Name Role Phone Henna Martin [facility] Primary Care Provider [phone] Encounter Details Date Type Department Care Team (Latest Contact Info) Description 06/19/2025 Travel Social History Tobacco Use Types Packs/Day Years [...] AM EDT documented as of this encounter Functional Status * Over the past 2 weeks, how often have you been bothered by any of the following problems? Question Answer Date of Assessment Author Patient Health Questionnaire-2 Score 0 06/19/2025 2:16 PM Sabi Singleton [place] * Little interest or pleasure in doing things Answer Date of Assessment Author Not at all 06/19/2025 2:16 PM Sabi Amos [place] * Feeling down, depressed, or hopeless Answer Date of Assessment Author Not at all 06/19/2025 2:16 PM Sabi Amos [place] * Trouble falling or staying asleep, [...] 2:16 PM EST Sabi Marion MA * Thoughts that you would be better off or hurting yourself in some way Answer Date of Assessment Author Not at all 06/19/2025 2:16 PM EST Sabi Marion MA * Patient Health Questionnaire-9 Score Answer Date of Assessment Author 0 06/19/2025 2:16 PM EST Sabi Marion MA * Over the last 2 weeks, how often have you been bothered by any of the following problems? Question Answer Date of Assessment Author Feeling nervous, anxious, or on edge 0 06/19/2025 2:16 PM EST Sabi Meyers MA Not being able to stop or control worrying 0 06/19/2025 2:16 PM EST Sabi Meyers MA Worrying too much about different things 0 06/19/2025 2:16 PM EST Sabi Meyers MA Trouble relaxing 0 06/19/2025 2:16 PM [...] documented as of this encounter Care Teams Pig Sticker Relationship Specialty Start Date End Date Henna Martin FNP [address] [place] [id number] PCP - General Family Medicine 04/06/22 documented as of this encounter
== END 2025-06-19 15:04 | disposition home or self-care (01) ==
LOC: HO.HHCL 15:03
PROVIDERS: PCP Registered Nurse; Visit Provider Registered Nurse
DX: T14.8XXA Other injury of unspecified body region, initial encounter (principal)
CPT/HCPCS: 36415; 84443; 85025